=== PATIENT | male | born 1970 | race Caucasian/White ===

== ENCOUNTER 2016-05-22 13:08 | Emergency (ER) | payer BC ==
[~2016-05-22] VITALS: Ht 182.9 cm; Wt 109.8 kg
[2016-05-22 13:16] VITALS: BP_SYST 145
--- NOTE | 2016-05-22 13:38 | NUR ---
PT. TO BED 7, ASSUMED PT. CARE REPORT RECEIVED BY RADHA BOGGS
--- NOTE | 2016-05-22 13:40 | NUR ---
PT. TO ER AAOX4 CAME FROM HOME C/O PAIN TO HIS LEFT LOWER LEG R/T POSSIBLE INFECTION, SITE SKIN YELLOW SEROSANGUINOUS INFECTION PRESENT, SURROUNDING SKIN WARM TO TOUCH, C/O PAIN 7/10 IN THE SURROUNDING TISSUE, STATES SHE WAS PLAYING SOFTBALL AND SLID MULTIPLE ABRASIONS AT SITE WERE PRESENT WENT TO [facility] GOT THE TREATMENT BUT THE SKIN CONDITION GOT WORSE OVER PAST 5 DAYS, DENIES SOB, DENIES CP, FOLLOWS COMMANDS, WALKS WITH A CANE
--- NOTE | 2016-05-22 13:48 | NUR ---
DR. FERNANDEZ AT BEDSIDE EXAMINING THE PT.
[2016-05-22 13:50] LABS: BASOPHILS # (AUTO) 0.1 K/uL (0.0-0.2); BASOPHILS % (AUTO) 1.4 % (0.0-2.0); EOSINOPHILS # (AUTO) 0.3 K/uL (0.0-0.4); EOSINOPHILS % (AUTO) 2.9 % (0.0-4.0); HEMATOCRIT 47.4 % (36-54); LYMPHOCYTES # (AUTO) 3.5 K/uL (1.0-5.5); LYMPHOCYTES % (AUTO) 36.1 % (20.5-51.5); MEAN CORPUSCULAR HEMOGLOBIN 29 pg (27-31); MEAN CORPUSCULAR HGB CONC 34 % (32-36); MEAN CORPUSCULAR VOLUME 84 fL (79.0-98.0); MONOCYTES # (AUTO) 0.5 K/uL (0.0-1.0); MONOCYTES % (AUTO) 5.3 % (1.7-9.3); NEUTROPHILS # (AUTO) 5.3 K/uL (1.8-7.7); NEUTROPHILS % (AUTO) 54.3 % (40.0-70.0); PLATELET COUNT (AUTO) 297 K/uL (130-430); RED BLOOD CELL COUNT(AUTO) 5.61 MIL/uL (4.2-6.2); RED CELL DISTRIBUTION WIDTH 12.2 % (9.0-15.0); WHITE BLOOD COUNT (AUTO) 9.7 K/uL (4.8-10.8)
--- NOTE | 2016-05-22 13:55 | NUR ---
X LORRI AT BEDSIDE
[2016-05-22 14:08] LABS: INR 1.1 (0.80-1.20); PROTHROMBIN TIME 11.9 SECS (9.5-12.5)
[2016-05-22 14:09] LABS: CALCIUM 9.6 mg/dL (8.4-11.0); CREATININE 1.11 mg/dL (0.55-1.30); POTASSIUM 4.4 mmol/L (3.5-5.1)
[2016-05-22 14:16] LABS: ALBUMIN 4.3 g/dL (3.4-4.8); TOTAL BILIRUBIN 0.6 mg/dL (0.0-1.0); TOTAL PROTEIN, SERUM 8.6 g/dL (6.4-8.3)
--- NOTE | 2016-05-22 14:22 | NUR ---
DR. FERNANDEZ SPEAKING TO THE PT. FOR TREATMENT PLAN
[2016-05-22] MEDS ORDERED: BACITRACIN 1 GM OINT TP ONE (14:45)
[2016-05-22 15:10] VITALS: BP_SYST 121
--- NOTE | 2016-05-22 15:10 | NUR ---
Patient given written and verbal discharge instructions and verbalizes understanding. ER MD DR. FERNANDEZ discussed with patient the results and treatment provided. Patient in stable condition. ID arm band removed. Rx of CLINDAMYCIN CEPHALEXIN BACITRACIN given. Patient educated on pain management and to follow up with PMD. Pain Scale 0/10 Opportunity for questions provided and answered.
== END 2016-05-22 15:10 | disposition home or self-care (01) ==
LOC: SED 13:08
DX: L03.116 Cellulitis of left lower limb (principal)
CPT/HCPCS: 36415; 73590-TC; 80053; 85025; 85610-TC; 85730-TC; 87040-TC; 99285